=== PATIENT | female | born 1980 ===

== ENCOUNTER 2017-09-25 10:01 | Emergency (ER) | payer OTHER ==
[2017-09-25] MEDS ORDERED: Naproxen 500 MG TAB PO STA (10:36)
[2017-09-25 10:46] VITALS: BP 127/86; PULSE 71; RESP 20; TEMP 97.8; O2SAT 99
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
[2017-09-25] MEDS ORDERED: Naproxen 500 MG TAB PO ONE (11:03)
--- NOTE | 2017-09-25 12:19 | CT ---
PROCEDURE: CT Cervical Spine without contrast HISTORY: [facility] COMPARISON: None available. TECHNIQUE: Axial computed tomography images were obtained of the cervical spine without the use of intravenous contrast. Coronal and sagittal reformatted images were created and reviewed. Radiation dose: Total exam DLP = 483.67 mGy-cm. This CT exam was performed using one or more of the following dose reduction techniques: Automated exposure control, adjustment of the mA and/or kV according to patient size, and/or use of iterative reconstruction technique. FINDINGS: VERTEBRAE: No fracture. Normal alignment. No destructive bony lesion. Mild reversal of the normal lordotic curvature is noted consistent with possible muscular spasm. DISCS/SPINAL CANAL/NEURAL FORAMINA: No significant central canal or neural foraminal stenosis. Discs heights are grossly preserved. PARASPINAL SOFT TISSUES: Unremarkable. OTHER FINDINGS: None. IMPRESSION: No evidence of fracture or dislocation. Possible muscular spasm. Otherwise unremarkable.
== END 2017-09-25 12:40 | disposition home or self-care (01) ==
LOC: H.ER 10:01
DX: S13.4XXA Sprain of ligaments of cervical spine, initial encounter (principal); V43.52XA Car driver injured in collision with other type car in traffic accident, initial encounter; Y92.410 Unspecified street and highway as the place of occurrence of the external cause